=== PATIENT | female | born 1985 | race African-American/Black ===

== ENCOUNTER 2018-03-12 08:32 | Observation (INO) ==
[2018-03-12 11:25] LABS: Basophils % 0.4 % (0.0-0.8); Eosinophils # 0.1 10*3/uL (0.0-0.87); Eosinophils % 1.8 % (0.00-10.9); Hematocrit 37.8 VOL% (35.7-47.0); Hemoglobin 13.1 GM/DL (12.0-16.0); Immature Granulocytes % 0.2 %; Immature Granulocytes Absolute 0.01 #; Lymphocytes % 43.2 % (21.3-54.2); Mean Corpuscular HGB Conc 34.7 GM/DL (32-36); Mean Corpuscular Hemoglobin 31 PG (27-34); Mean Corpuscular Volume 89.8 FL (87-102); Mean Platelet Volume 11.3 FL (9.6-12.0); Monocytes # 0.3 10*3/uL (0.11-0.8); Monocytes % 7.5 % (1.7-12.7); Neutrophils # 2.1 10*3/uL (1.4-7.4); Neutrophils % 46.9 % (38.7-73.9); Platelet Count 196 T/CUMM (130-400); Red Blood Count 4.21 MC/CUMM (3.8-5.5); Red Cell Distribution Width 11.9 % (9.3-17.3); White Blood Count 4.6 T/CUMM (4-12)
[2018-03-12 11:58] LABS: Calcium 8.9 MG/DL (8.5-10.1); Osmolality,Calculated 277.4 MOS/KG (273-304); Potassium 3.7 MMOL/L (3.5-5.1)
[2018-03-12 19:05] VITALS: BP 105/66
== END 2018-03-12 19:10 | disposition home or self-care (01) ==
LOC: N.ED 08:32 → N.EDINP 08:32 → N.OB 13:17
PROVIDERS: ADMIT Obstetrics & Gynecology; ATTEND Obstetrics & Gynecology

== ENCOUNTER 2022-02-07 15:14 | Observation (INO) ==
[2022-02-07] MEDS ORDERED: propofoL 200 MG/20 ML VIAL IV ONE (15:50)
[2022-02-07] MEDS ORDERED: propofoL 200 MG/20 ML VIAL IV STA (16:00)
[2022-02-07] MEDS ORDERED: KETOROLAC 30 MG/1 ML VIAL ONE (16:05)
[2022-02-07] MEDS ORDERED: KETOROLAC 30 MG/1 ML VIAL IV STA (16:10)
[2022-02-07] MEDS ORDERED: ONDANSETRON 4 MG/2 ML VIAL IV PRN (17:16)
[2022-02-07] MEDS ORDERED: MAGNESIUM HYDROXIDE SUSP 30 ML UDCUP PO PRN (17:16)
[2022-02-07 17:31] LABS: Basophils % 0.3 % (0.0-0.8); Eosinophils % 0.5 % (0.00-10.9); Hematocrit 40.4 VOL% (35.7-47.0); Hemoglobin 13.3 GM/DL (12.0-16.0); Immature Granulocytes % 0.3 %; Immature Granulocytes Absolute 0.02 #; Lymphocytes # 1.6 10*3/uL (1.4-4.0); Mean Corpuscular HGB Conc 32.9 GM/DL (32-36); Mean Corpuscular Volume 93.7 FL (87-102); Mean Platelet Volume 11.6 FL (9.6-12.0); Monocytes # 0.3 10*3/uL (0.11-0.8); Monocytes % 4.3 % (1.7-12.7); Neutrophils % 70.6 % (38.7-73.9); Platelet Count 215 T/CUMM (130-400); Red Blood Count 4.31 MC/CUMM (3.8-5.5); Red Cell Distribution Width 11.7 % (9.3-17.3); White Blood Count 6.5 T/CUMM (4-12)
[2022-02-07 18:00] LABS: Albumin 3.9 G/DL (3.4-5.0); Bilirubin,Total 0.5 MG/DL (0.20-1.00); Calcium 9.2 MG/DL (8.5-10.1); Osmolality,Calculated 275.5 MOS/KG (273-304); Potassium 3.3 MMOL/L (3.5-5.1); Total Protein 7.6 G/DL (6.4-8.2)
[2022-02-07] MEDS: HYDROmorphone 1 MG/1 ML SYRINGE IV PRN (18:04)
[2022-02-07] MEDS: LACTATED RINGERS 1,000 ML IV SCH (20:22)
[2022-02-08] MEDS: HYDROmorphone 1 MG/1 ML SYRINGE IV PRN ×2 (00:26→06:51)
[2022-02-08] MEDS: LACTATED RINGERS 1,000 ML IV SCH ×2 (05:45→19:20)
[2022-02-08] MEDS ORDERED: ONDANSETRON 4 MG/2 ML VIAL ONE (07:10)
[2022-02-08] MEDS ORDERED: fentaNYL 100 MCG/2 ML VIAL ONE (07:10)
[2022-02-08] MEDS ORDERED: propofoL 200 MG/20 ML VIAL IV ONE (07:10)
[2022-02-08] MEDS ORDERED: MIDAZOLAM 2 MG/2 ML VIAL ONE (07:10)
[2022-02-08] MEDS ORDERED: LIDOCAINE 2% 5 ML VIAL ONE (07:10)
[2022-02-08] MEDS ORDERED: DEXAMETHASONE 4 MG/1 ML VIAL ONE ×2 (07:10→09:01)
[2022-02-08] MEDS ORDERED: SEVOFLURANE 1 UNIT/15 MINUTE INH ONE ×2 (07:10→10:33)
[2022-02-08] MEDS ORDERED: ROPIVACAINE 0.5% 30 ML VIAL ONE (09:02)
[2022-02-08] MEDS ORDERED: PHENYLEPHRINE 1 MG/10 ML SYRINGE IV ONE ×5 (10:33→12:03)
[2022-02-08] MEDS ORDERED: CLINDAMYCIN INJ 900 MG/50 ML PREMIX IV ONE (10:40)
[2022-02-08] MEDS: PANTOPRAZOLE 40 MG TABLET PO SCH (17:00)
[2022-02-08] MEDS ORDERED: SIMETHICONE CHEW 125 MG TABLET PO PRN (22:37)
[2022-02-09] MEDS: LACTATED RINGERS 1,000 ML IV SCH ×2 (01:17→10:31)
[2022-02-09] MEDS: PANTOPRAZOLE 40 MG TABLET PO SCH (09:18)
[2022-02-09 11:21] VITALS: BP 120/71
== END 2022-02-09 14:40 | disposition home or self-care (01) ==
LOC: EDBD → EDUNIT# → N.EDINP 15:14 → N.ED 15:14 → N.EDINP 19:13 → N.3E 19:36
PROVIDERS: ADMIT Orthopaedic Surgery; ATTEND Orthopaedic Surgery